=== PATIENT | female | born 1930 | race Caucasian/White ===

== ENCOUNTER 2017-01-12 12:04 | Inpatient (IN) | payer OTHER ==
[2017-01-12] VITALS (25 sets, daily range): BP systolic 78–103; BP diastolic 34–62
[~2017-01-12] VITALS: Ht 162.6 cm; Wt 84.3 kg
[~2017-01-12 12:04] MED LIST: ALDACTONE25 MG PO; ALLOPURINOL100 MG PO; AMLODIPINE BESYL5 MG PO; ASPIR 8181 M1 PO; COMBIVENT RESPIM4 GM IH; COUMADIN5 MG PO; CREON 61 CAPSULE PO; DOCUSATE SODIU100 MG PO; ELIQUIS5 MG PO; FUROSEMIDE20 MG PO; GABAPENTIN300 MG PO; HUMALOG100 UNIT/2 SC; IMODIUM MS REL1 EACH PO; LANTUS 3 M100 UNITS1 SC; LIPITOR80 MG PO; LISINOPRIL10 MG PO; MEDROL DOSEPAK4 MG PO; NITROSTAT0.4 MG SL; NOVOLOG PE100 UNITS/ SC; OXYCODONE-ACET1 EACH PO; PANCRELIPASE 51 EACH PO; POLYETHYLENE GL17 GM PO; SOTALOL120 MG PO; ULTRAM50 MG PO; VALIUM2 MG PO; VICODIN 5-3001 EACH PO
[2017-01-12 13:18] LABS: EOSINOPHIL (%) 0.3 % (0-5); HEMATOCRIT 17.7 % (36.0-46.0); IMMATURE GRANULOCYTE (%) 0.9 % (0.0-0.7); IMMATURE GRANULOCYTE COUNT 0.1 K/uL; LYMPHOCYTE COUNT 1.1 K/uL (1.0-2.8); MCH 31.3 PG (29.0-34.0); MCHC 32.2 G/DL (30.0-36.0); MCV 97.3 FL (83-99); MONOCYTE (%) 3.1 % (3-12); MONOCYTE COUNT 0.3 K/uL (0-0.8); NEUTROPHIL (%) 85.4 % (45-76); PLATELET COUNT 129 K/uL (156-360); RBC DIS.WIDTH-CV 15.3 % (11.8-14.6); RBC DIS.WIDTH-SD 53.2 % (39-53); RED BLOOD COUNT 1.82 M/uL (3.80-5.20); WHITE BLOOD COUNT 10.6 K/uL (4.1-10.2)
[2017-01-12 13:20] LABS: CHLORIDE 110 mEq/L (99-109); POTASSIUM 5.8 mEq/L (3.7-5.4); SODIUM 140 mEq/L (136-147)
[2017-01-12 13:24] LABS: ANION GAP 9 MEQ/L (2-14)
[2017-01-12 13:25] LABS: TOTAL BILIRUBIN 0.3 mg/dL (0.0-1.0)
[2017-01-12 13:27] LABS: GFR ESTIMATE (CALCULATED) 28 mL/min/
[2017-01-12 13:28] LABS: DIRECT BILIRUBIN 0.2 mg/dL (0.0-0.3)
[2017-01-12 13:29] LABS: TROP-I INTERPRETATION NEGATIVE; TROPONIN-I 0.05 ng/mL (0.0-0.30)
[2017-01-12 13:43] LABS: GLUCOSE 215 mg/dL (70-99)
[2017-01-12 13:46] LABS: ALKALINE PHOSPHATASE 74 IU/L (3-129)
[2017-01-12 13:50] LABS: LIPASE 136 U/L (1.0-51.0)
[2017-01-12 13:53] LABS: UREA NITROGEN (BUN) 138 mg/dL (9-23)
[2017-01-12 14:32] LABS: INTER. NORMALIZED RATIO 1.9; PROTHROMBIN TIME 21.8 SEC (10.2-12.9)
[2017-01-12 14:35] LABS: PTT 29.3 SEC (25-37)
[2017-01-12 17:48] LABS: METH RESISTANT S AUREUS PCR NEGATIVE (NEGATIVE)
[2017-01-12 17:52] LABS: PROBE CHECK PASS; SPECIMEN PROCESSING CONTROL PASS
[2017-01-12 19:21] LABS: HEMATOCRIT 29.5 % (36.0-46.0); MCHC 32.9 G/DL (30.0-36.0); MCV 94.2 FL (83-99); MEAN PLAT.VOLUME 11.6 uM^3 (9.5-12.4); PLATELET COUNT 117 K/uL (156-360); RBC DIS.WIDTH-SD 54.6 % (39-53); WHITE BLOOD COUNT 13.6 K/uL (4.1-10.2)
[2017-01-12 19:22] LABS: RED BLOOD COUNT 3.13 M/uL (3.80-5.20)
[2017-01-13] VITALS (22 sets, daily range): BP systolic 68–121; BP diastolic 34–61
[2017-01-13 01:16] LABS: HEMATOCRIT 26.7 % (36.0-46.0); MCH 30.8 PG (29.0-34.0); MCHC 33.3 G/DL (30.0-36.0); MCV 92.4 FL (83-99); MEAN PLAT.VOLUME 10.8 uM^3 (9.5-12.4); PLATELET COUNT 164 K/uL (156-360); RBC DIS.WIDTH-CV 16.7 % (11.8-14.6); RBC DIS.WIDTH-SD 55.8 % (39-53); RED BLOOD COUNT 2.89 M/uL (3.80-5.20); WHITE BLOOD COUNT 10.8 K/uL (4.1-10.2)
[2017-01-13 05:31] LABS: POINT-OF-CARE METER ID UU13113748
[2017-01-13 06:38] LABS: HEMATOCRIT 24.9 % (36.0-46.0); MCH 31.6 PG (29.0-34.0); MCHC 34.1 G/DL (30.0-36.0); MCV 92.6 FL (83-99); MEAN PLAT.VOLUME 10.9 uM^3 (9.5-12.4); PLATELET COUNT 160 K/uL (156-360); RBC DIS.WIDTH-CV 16.9 % (11.8-14.6); RBC DIS.WIDTH-SD 55.8 % (39-53); RED BLOOD COUNT 2.69 M/uL (3.80-5.20); WHITE BLOOD COUNT 9.1 K/uL (4.1-10.2)
[2017-01-13 06:49] LABS: INTER. NORMALIZED RATIO 1.6; PROTHROMBIN TIME 17.5 SEC (10.2-12.9)
[2017-01-13 07:13] LABS: ANION GAP 10 MEQ/L (2-14); CHLORIDE 111 MEQ/L (99-109); GFR ESTIMATE (CALCULATED) 24 mL/min/; GLUCOSE 126 mg/dL (70-99); POTASSIUM 5.4 MEQ/L (3.7-5.4); SAMPLE HEMOLYSIS CHECK 0; SAMPLE ICTERIC CHECK 0; SAMPLE LIPEMIA CHECK 0; SODIUM 141 MEQ/L (136-147)
[2017-01-13 07:14] LABS: UREA NITROGEN (BUN) 124 mg/dL (9-23)
[2017-01-13 10:22] LABS: POINT-OF-CARE METER ID UU14174212
[2017-01-13 11:29] LABS: HEMATOCRIT 27.5 % (36.0-46.0); MCH 30.6 PG (29.0-34.0); MCHC 32.4 G/DL (30.0-36.0); MCV 94.5 FL (83-99); NRBC (%) 0.2 /100 WBC (0-0); PLATELET COUNT 180 K/uL (156-360); RBC DIS.WIDTH-CV 17.2 % (11.8-14.6); RBC DIS.WIDTH-SD 57.7 % (39-53); RED BLOOD COUNT 2.91 M/uL (3.80-5.20); WHITE BLOOD COUNT 9.8 K/uL (4.1-10.2)
[2017-01-13 13:31] LABS: POINT-OF-CARE METER ID UU13113748
[2017-01-13 18:03] LABS: POINT-OF-CARE METER ID UU13113748
[2017-01-13 19:12] LABS: HEMATOCRIT 26.3 % (36.0-46.0); MCH 32.1 PG (29.0-34.0); MCHC 33.5 G/DL (30.0-36.0); MEAN PLAT.VOLUME 11.3 uM^3 (9.5-12.4); NRBC (%) 0.3 /100 WBC (0-0); PLATELET COUNT 163 K/uL (156-360); RBC DIS.WIDTH-SD 57.2 % (39-53); RED BLOOD COUNT 2.74 M/uL (3.80-5.20); WHITE BLOOD COUNT 7.9 K/uL (4.1-10.2)
[2017-01-13 23:47] LABS: POINT-OF-CARE METER ID UU14174217
[2017-01-14] VITALS (15 sets, daily range): BP systolic 89–120; BP diastolic 39–71
[2017-01-14 00:39] LABS: HEMATOCRIT 28.2 % (36.0-46.0); MCH 30.9 PG (29.0-34.0); MCHC 32.6 G/DL (30.0-36.0); MCV 94.6 FL (83-99); MEAN PLAT.VOLUME 11.1 uM^3 (9.5-12.4); NRBC (%) 0.4 /100 WBC (0-0); PLATELET COUNT 176 K/uL (156-360); RBC DIS.WIDTH-CV 16.5 % (11.8-14.6); RBC DIS.WIDTH-SD 55.5 % (39-53); RED BLOOD COUNT 2.98 M/uL (3.80-5.20); WHITE BLOOD COUNT 7.7 K/uL (4.1-10.2)
[2017-01-14 05:16] LABS: POINT-OF-CARE METER ID UU13113748
[2017-01-14 05:45] LABS: EOSINOPHIL (%) 1.2 % (0-5); EOSINOPHIL COUNT 0.1 K/uL (0-0.3); HEMATOCRIT 26.9 % (36.0-46.0); IMMATURE GRANULOCYTE (%) 0.8 % (0.0-0.7); IMMATURE GRANULOCYTE COUNT 0.1 K/uL; INSTRUMENT ABS NEUTROPHIL CT 5.7 K/uL; LYMPHOCYTE COUNT 1.3 K/uL (1.0-2.8); MCH 31.8 PG (29.0-34.0); MCHC 33.1 G/DL (30.0-36.0); MCV 96.1 FL (83-99); MEAN PLAT.VOLUME 11.4 uM^3 (9.5-12.4); MONOCYTE (%) 7.4 % (3-12); MONOCYTE COUNT 0.6 K/uL (0-0.8); NEUTROPHIL (%) 73.2 % (45-76); NEUTROPHIL COUNT 5.7 K/uL (1.8-6.4); NRBC (%) 0.3 /100 WBC (0-0); PLATELET COUNT 156 K/uL (156-360); RBC DIS.WIDTH-CV 16.7 % (11.8-14.6); RBC DIS.WIDTH-SD 56.8 % (39-53); WHITE BLOOD COUNT 7.8 K/uL (4.1-10.2)
[2017-01-14 07:07] LABS: ANION GAP 8 MEQ/L (2-14); CHLORIDE 111 MEQ/L (99-109); GFR ESTIMATE (CALCULATED) 24 mL/min/; GLUCOSE 113 mg/dL (70-99); POTASSIUM 5.6 MEQ/L (3.7-5.4); SAMPLE HEMOLYSIS CHECK 0; SAMPLE ICTERIC CHECK 0; SAMPLE LIPEMIA CHECK 0; SODIUM 140 MEQ/L (136-147); UREA NITROGEN (BUN) 104 mg/dL (9-23)
[2017-01-14 12:18] LABS: POINT-OF-CARE METER ID UU14208751
[2017-01-14 12:47] LABS: HEMATOCRIT 26.7 % (36.0-46.0); MCH 31.2 PG (29.0-34.0); MCHC 32.6 G/DL (30.0-36.0); MCV 95.7 FL (83-99); MEAN PLAT.VOLUME 10.9 uM^3 (9.5-12.4); PLATELET COUNT 162 K/uL (156-360); RBC DIS.WIDTH-CV 16.3 % (11.8-14.6); RBC DIS.WIDTH-SD 55.3 % (39-53); RED BLOOD COUNT 2.79 M/uL (3.80-5.20); WHITE BLOOD COUNT 7.3 K/uL (4.1-10.2)
[2017-01-14 17:40] LABS: POINT-OF-CARE METER ID UU14208751
[2017-01-14 19:52] LABS: HEMATOCRIT 26.8 % (36.0-46.0); MCH 31.3 PG (29.0-34.0); MCHC 32.5 G/DL (30.0-36.0); MCV 96.4 FL (83-99); PLATELET COUNT 172 K/uL (156-360); RBC DIS.WIDTH-CV 16.2 % (11.8-14.6); RBC DIS.WIDTH-SD 54.7 % (39-53); RED BLOOD COUNT 2.78 M/uL (3.80-5.20)
[2017-01-14 22:12] LABS: POINT-OF-CARE METER ID UU14208751
[2017-01-15] VITALS (7 sets, daily range): BP systolic 98–124; BP diastolic 38–63
[2017-01-15 01:01] LABS: HEMATOCRIT 27.2 % (36.0-46.0); MCH 30.8 PG (29.0-34.0); MCHC 32.4 G/DL (30.0-36.0); MCV 95.1 FL (83-99); NRBC (%) 0.3 /100 WBC (0-0); PLATELET COUNT 159 K/uL (156-360); RBC DIS.WIDTH-CV 16.3 % (11.8-14.6); RBC DIS.WIDTH-SD 53.1 % (39-53); RED BLOOD COUNT 2.86 M/uL (3.80-5.20); WHITE BLOOD COUNT 7.7 K/uL (4.1-10.2)
[2017-01-15 08:17] LABS: POINT-OF-CARE METER ID UU13113698
[2017-01-15 08:46] LABS: EOSINOPHIL (%) 1.2 % (0-5); EOSINOPHIL COUNT 0.1 K/uL (0-0.3); HEMATOCRIT 27.4 % (36.0-46.0); IMMATURE GRANULOCYTE (%) 0.8 % (0.0-0.7); IMMATURE GRANULOCYTE COUNT 0.1 K/uL; INSTRUMENT ABS NEUTROPHIL CT 5.7 K/uL; LYMPHOCYTE COUNT 0.9 K/uL (1.0-2.8); MCH 31.2 PG (29.0-34.0); MCHC 32.5 G/DL (30.0-36.0); MCV 96.1 FL (83-99); MEAN PLAT.VOLUME 10.9 uM^3 (9.5-12.4); MONOCYTE (%) 9.2 % (3-12); MONOCYTE COUNT 0.7 K/uL (0-0.8); NEUTROPHIL (%) 76.2 % (45-76); NEUTROPHIL COUNT 5.7 K/uL (1.8-6.4); PLATELET COUNT 174 K/uL (156-360); RBC DIS.WIDTH-CV 16.3 % (11.8-14.6); RBC DIS.WIDTH-SD 53.8 % (39-53); RED BLOOD COUNT 2.85 M/uL (3.80-5.20); WHITE BLOOD COUNT 7.4 K/uL (4.1-10.2)
[2017-01-15 09:05] LABS: ANION GAP 7 MEQ/L (2-14); CHLORIDE 113 MEQ/L (99-109); POTASSIUM 5.2 MEQ/L (3.7-5.4); SAMPLE HEMOLYSIS CHECK 0; SAMPLE ICTERIC CHECK 0; SAMPLE LIPEMIA CHECK 0; SODIUM 139 MEQ/L (136-147); TOTAL BILIRUBIN 0.5 MG/DL (0.0-1.0)
[2017-01-15 09:16] LABS: ALKALINE PHOSPHATASE 81 IU/L (3-129); GFR ESTIMATE (CALCULATED) 35 mL/min/; GLUCOSE 143 mg/dL (70-99); UREA NITROGEN (BUN) 82 mg/dL (9-23)
[2017-01-15 10:58] LABS: POINT-OF-CARE METER ID UU13113698
[2017-01-15 16:00] LABS: POINT-OF-CARE METER ID UU13113698
[2017-01-16 04:30] VITALS: BP 107/57
[2017-01-16 06:23] LABS: EOSINOPHIL (%) 1.5 % (0-5); EOSINOPHIL COUNT 0.1 K/uL (0-0.3); HEMATOCRIT 35.7 % (36.0-46.0); IMMATURE GRANULOCYTE (%) 0.8 % (0.0-0.7); IMMATURE GRANULOCYTE COUNT 0.1 K/uL; INSTRUMENT ABS NEUTROPHIL CT 4.6 K/uL; LYMPHOCYTE COUNT 0.9 K/uL (1.0-2.8); MCH 31.9 PG (29.0-34.0); MCHC 33.3 G/DL (30.0-36.0); MCV 95.7 FL (83-99); MEAN PLAT.VOLUME 11.4 uM^3 (9.5-12.4); MONOCYTE COUNT 0.6 K/uL (0-0.8); NEUTROPHIL (%) 74.4 % (45-76); NEUTROPHIL COUNT 4.6 K/uL (1.8-6.4); NRBC (%) 0.5 /100 WBC (0-0); PLATELET COUNT 124 K/uL (156-360); RBC DIS.WIDTH-CV 17.2 % (11.8-14.6); RBC DIS.WIDTH-SD 53.6 % (39-53); WHITE BLOOD COUNT 6.1 K/uL (4.1-10.2)
[2017-01-16 06:24] LABS: RED BLOOD COUNT 3.73 M/uL (3.80-5.20)
[2017-01-16 06:41] LABS: ALKALINE PHOSPHATASE 81 IU/L (3-129); ANION GAP 7 MEQ/L (2-14); CHLORIDE 113 MEQ/L (99-109); GFR ESTIMATE (CALCULATED) 35 mL/min/; GLUCOSE 147 mg/dL (70-99); POTASSIUM 5.3 MEQ/L (3.7-5.4); SAMPLE HEMOLYSIS CHECK 0; SAMPLE ICTERIC CHECK 0; SAMPLE LIPEMIA CHECK 0; SODIUM 141 MEQ/L (136-147); TOTAL BILIRUBIN 0.5 MG/DL (0.0-1.0); UREA NITROGEN (BUN) 64 mg/dL (9-23)
[2017-01-16 07:32] LABS: POINT-OF-CARE METER ID UU13113803
[2017-01-16 07:43] VITALS: BP 90/51
[2017-01-16 11:20] LABS: POINT-OF-CARE METER ID UU13113803
[2017-01-16 11:41] VITALS: BP 108/57
[2017-01-16] MEDS ORDERED: PANTOPRAZOLE SO40 MG PO (11:57)
[2017-01-16] MEDS ORDERED: ZOFRAN4 MG PO (15:33)
[2017-01-16 16:29] LABS: POINT-OF-CARE METER ID UU13113803
== END 2017-01-16 20:24 | disposition home or self-care (01) | DRG 378 ==
LOC: EME 12:04 → 4WEST 14:30 → EDOF 14:30 → 4EAST 14:30 → ENRESERV 15:11 → 4WEST 16:19 → ENRESERV 01-15 05:33 → 4EAST 01-15 06:06
PROVIDERS: Emergency Medicine; Hospitalist; Internal Medicine Critical Care Medicine; Internal Medicine Gastroenterology; Student in an Organized Health Care Education/Training Program
PROC: 0DJ08ZZ Inspection of Upper Intestinal Tract, Via Natural or Artificial Opening Endoscopic (ICD-10-PCS; principal; 2017-01-12)
PROC: 30233N1 Transfusion of Nonautologous Red Blood Cells into Peripheral Vein, Percutaneous Approach (ICD-10-PCS; principal; 2017-01-12)
DX: K92.1 Melena (principal); N17.9 Acute kidney failure, unspecified; I48.0 Paroxysmal atrial fibrillation; I50.9 Heart failure, unspecified; E11.22 Type 2 diabetes mellitus with diabetic chronic kidney disease; K86.89 Other specified diseases of pancreas; I13.0 Hypertensive heart and chronic kidney disease with heart failure and stage 1 through stage 4 chronic kidney disease, or unspecified chronic kidney disease; I49.5 Sick sinus syndrome; I35.0 Nonrheumatic aortic (valve) stenosis; E66.9 Obesity, unspecified; K44.9 Diaphragmatic hernia without obstruction or gangrene; H26.9 Unspecified cataract; K21.0 Gastro-esophageal reflux disease with esophagitis; D64.9 Anemia, unspecified; N18.3 Chronic kidney disease, stage 3 (moderate); R11.2 Nausea with vomiting, unspecified; M47.9 Spondylosis, unspecified; R01.1 Cardiac murmur, unspecified; I25.10 Atherosclerotic heart disease of native coronary artery without angina pectoris; E78.5 Hyperlipidemia, unspecified; M10.9 Gout, unspecified; Q27.33 Arteriovenous malformation of digestive system vessel; Z86.73 Personal history of transient ischemic attack (TIA), and cerebral infarction without residual deficits; Z95.1 Presence of aortocoronary bypass graft; Z79.01 Long term (current) use of anticoagulants; Z95.0 Presence of cardiac pacemaker; Z68.32 Body mass index [BMI] 32.0-32.9, adult; Z88.8 Allergy status to other drugs, medicaments and biological substances
CPT/HCPCS: 71010; 76770; 80048; 80053; 80076; 81003; 82948; 83605; 83690; 83880; 84484; 85025; 85027; 85610; 85730; 86900; 86901; 86920; 87641; 93005; 94799; 99202; 99281; 99285; C9113; J1815; J2405; J7030; J7050; P9016; P9017; P9035

== ENCOUNTER 2017-02-27 12:30 | Day surgery (SDC) | payer OTHER ==
[~2017-02-27 12:30] MED LIST changes: +PANTOPRAZOLE SO40 MG PO; +ZOFRAN4 MG PO
[2017-02-27 13:05] LABS: POINT-OF-CARE METER ID UU13113696
[2017-02-27] MEDS ORDERED: LASIX20 MG PO (14:55)
[2017-02-27] MEDS ORDERED: COUMADIN2 MG PO (14:56)
[2017-02-27] MEDS ORDERED: LISINOPRIL2.5 MG PO (14:56)
== END 2017-02-27 15:37 | disposition home or self-care (01) ==
LOC: CATH 12:30
PROVIDERS: Internal Medicine Cardiovascular Disease
DX: Z45.010 Encounter for checking and testing of cardiac pacemaker pulse generator [battery] (principal); I48.91 Unspecified atrial fibrillation; I44.2 Atrioventricular block, complete; I25.10 Atherosclerotic heart disease of native coronary artery without angina pectoris; Z95.1 Presence of aortocoronary bypass graft; I12.9 Hypertensive chronic kidney disease with stage 1 through stage 4 chronic kidney disease, or unspecified chronic kidney disease; E11.22 Type 2 diabetes mellitus with diabetic chronic kidney disease; N18.9 Chronic kidney disease, unspecified; Z79.4 Long term (current) use of insulin; E78.5 Hyperlipidemia, unspecified
CPT/HCPCS: 82948; C1785; J0690; J1200; J2250; J3010; S0020

== ENCOUNTER 2017-03-01 19:08 | Inpatient (IN) | payer OTHER ==
[~2017-03-01] VITALS: Ht 160 cm; Wt 86.0 kg
[~2017-03-01 19:08] MED LIST changes: +COUMADIN2 MG PO; +LASIX20 MG PO; +LISINOPRIL2.5 MG PO
[2017-03-01 19:52] LABS: INTER. NORMALIZED RATIO 1.4; PROTHROMBIN TIME 15.7 SEC (10.2-12.9)
[2017-03-01 19:54] LABS: HEMATOCRIT 30.7 % (36.0-46.0); MCH 27.5 PG (29.0-34.0); MCHC 30.9 G/DL (30.0-36.0); PLATELET COUNT 200 K/uL (156-360); RBC DIS.WIDTH-SD 55.4 % (39-53); RED BLOOD COUNT 3.45 M/uL (3.80-5.20); WHITE BLOOD COUNT 6.5 K/uL (4.1-10.2)
[2017-03-01 19:55] LABS: PTT 27.8 SEC (25-37)
[2017-03-01 19:58] LABS: CHLORIDE 106 mEq/L (99-109); POTASSIUM 4.4 mEq/L (3.7-5.4); SODIUM 144 mEq/L (136-147)
[2017-03-01 19:59] LABS: GLUCOSE 84 mg/dL (70-99)
[2017-03-01 20:01] LABS: ANION GAP 15 MEQ/L (2-14)
[2017-03-01 20:03] LABS: GFR ESTIMATE (CALCULATED) 32 mL/min/
[2017-03-01 20:04] LABS: UREA NITROGEN (BUN) 29 mg/dL (9-23)
[2017-03-01 20:08] LABS: TROP-I INTERPRETATION NEGATIVE; TROPONIN-I 0.04 ng/mL (0.0-0.30)
[2017-03-01] MEDS ORDERED: PRESERVISION T1 EACH PO (23:49)
[2017-03-01] MEDS ORDERED: CEPHALEXIN500 MG PO (23:49)
[2017-03-01] MEDS ORDERED: PROTONIX40 MG PO (23:49)
[2017-03-02 00:39] VITALS: BP 141/61
[2017-03-02 04:00] VITALS: BP 143/65
[2017-03-02 06:19] LABS: INTER. NORMALIZED RATIO 1.4; PROTHROMBIN TIME 16.1 SEC (10.2-12.9)
[2017-03-02 08:12] VITALS: BP 134/64
[2017-03-02 08:42] LABS: POINT-OF-CARE METER ID UU14162513
[2017-03-02 09:04] LABS: HEMATOCRIT 29.3 % (36.0-46.0); MCH 28.2 PG (29.0-34.0); MCHC 31.4 G/DL (30.0-36.0); MCV 89.9 FL (83-99); MEAN PLAT.VOLUME 11.3 uM^3 (9.5-12.4); PLATELET COUNT 183 K/uL (156-360); RBC DIS.WIDTH-CV 17.2 % (11.8-14.6); RBC DIS.WIDTH-SD 55.8 % (39-53); RED BLOOD COUNT 3.26 M/uL (3.80-5.20); WHITE BLOOD COUNT 5.6 K/uL (4.1-10.2)
[2017-03-02 09:18] LABS: ANION GAP 11 MEQ/L (2-14); CHLORIDE 105 MEQ/L (99-109); GFR ESTIMATE (CALCULATED) 30 mL/min/; POTASSIUM 4.5 MEQ/L (3.7-5.4); SAMPLE HEMOLYSIS CHECK 0; SAMPLE ICTERIC CHECK 0; SAMPLE LIPEMIA CHECK 0; SODIUM 142 MEQ/L (136-147); UREA NITROGEN (BUN) 32 mg/dL (9-23)
[2017-03-02 09:20] LABS: GLUCOSE 109 mg/dL (70-99)
[2017-03-02 12:00] LABS: POINT-OF-CARE METER ID UU14162513
[2017-03-02 16:03] VITALS: BP 139/67
[2017-03-02 16:37] LABS: POINT-OF-CARE METER ID UU14162513
[2017-03-02 19:30] VITALS: BP 143/64
[2017-03-02 22:01] LABS: POINT-OF-CARE METER ID UU14162513
[2017-03-02 23:43] VITALS: BP 135/68
[2017-03-03 04:15] VITALS: BP 137/72
[2017-03-03 05:45] LABS: INTER. NORMALIZED RATIO 1.5; PROTHROMBIN TIME 16.7 SEC (10.2-12.9)
[2017-03-03 07:11] VITALS: BP 117/63
[2017-03-03 08:28] LABS: HEMATOCRIT 29.8 % (36.0-46.0); MCH 27.8 PG (29.0-34.0); MCHC 31.5 G/DL (30.0-36.0); MCV 88.2 FL (83-99); MEAN PLAT.VOLUME 12.2 uM^3 (9.5-12.4); PLATELET COUNT 174 K/uL (156-360); RBC DIS.WIDTH-CV 17.4 % (11.8-14.6); RED BLOOD COUNT 3.38 M/uL (3.80-5.20); WHITE BLOOD COUNT 4.9 K/uL (4.1-10.2)
[2017-03-03 08:33] LABS: ANION GAP 10 MEQ/L (2-14); CHLORIDE 104 MEQ/L (99-109); POTASSIUM 4.2 MEQ/L (3.7-5.4); SAMPLE HEMOLYSIS CHECK 0; SAMPLE ICTERIC CHECK 0; SAMPLE LIPEMIA CHECK 0; SODIUM 142 MEQ/L (136-147)
[2017-03-03 08:38] LABS: GFR ESTIMATE (CALCULATED) 35 mL/min/; GLUCOSE 89 mg/dL (70-99); UREA NITROGEN (BUN) 31 mg/dL (9-23)
[2017-03-03] MEDS ORDERED: AZITHROMYCIN500 M1 PO (11:28)
[2017-03-03] MEDS ORDERED: FUROSEMIDE40 MG PO (11:28)
[2017-03-03] MEDS ORDERED: BENZONATATE100 MG PO (11:29)
[2017-03-03 11:31] VITALS: BP 109/53
[2017-03-03] MEDS ORDERED: COMBIVENT RESPIM4 GM IH (11:32)
[2017-03-03 12:48] LABS: POINT-OF-CARE METER ID UU14162513
== END 2017-03-03 15:37 | disposition home health service (06) | DRG 292 ==
LOC: EME 19:08 → EDOF 22:41 → ENRESERV 22:45 → 5WEST 03-02 00:02 → CANRESERV 03-02 11:47 → ENRESERV 03-02 11:47 → 5WEST 03-03 15:37
PROVIDERS: Emergency Medicine; Internal Medicine; Nurse Practitioner Adult Health
DX: I13.0 Hypertensive heart and chronic kidney disease with heart failure and stage 1 through stage 4 chronic kidney disease, or unspecified chronic kidney disease (principal); N17.9 Acute kidney failure, unspecified; I50.30 Unspecified diastolic (congestive) heart failure; Z95.810 Presence of automatic (implantable) cardiac defibrillator; I48.0 Paroxysmal atrial fibrillation; I25.10 Atherosclerotic heart disease of native coronary artery without angina pectoris; N18.3 Chronic kidney disease, stage 3 (moderate); E66.9 Obesity, unspecified; K21.9 Gastro-esophageal reflux disease without esophagitis; Z68.34 Body mass index [BMI] 34.0-34.9, adult; E78.5 Hyperlipidemia, unspecified; Z79.01 Long term (current) use of anticoagulants; Z86.73 Personal history of transient ischemic attack (TIA), and cerebral infarction without residual deficits; Z95.1 Presence of aortocoronary bypass graft; J40 Bronchitis, not specified as acute or chronic; M10.9 Gout, unspecified
CPT/HCPCS: 71010; 71250; 80048; 82948; 83605; 83880; 84484; 85027; 85610; 85730; 87040; 93005; 94010; 94640; 99202; 99281; 99285; C1785; G0378; G8978 GP CI; G8979 GP CH; G8980 GP CI; J0690; J1200; J1940; J2250; J3010; S0020

== ENCOUNTER 2017-05-08 12:27 | Inpatient (IN) | payer OTHER ==
[~2017-05-08] VITALS: Ht 160 cm; Wt 102.0 kg
[~2017-05-08 12:27] MED LIST changes: +AZITHROMYCIN500 M1 PO; +BENZONATATE100 MG PO; +CEPHALEXIN500 MG PO; +FUROSEMIDE40 MG PO; +PRESERVISION T1 EACH PO; +PROTONIX40 MG PO
[2017-05-08 13:06] LABS: HEMATOCRIT 33.6 % (36.0-46.0); MCH 24.2 PG (29.0-34.0); MCHC 30.1 G/DL (30.0-36.0); MCV 80.4 FL (83-99); MEAN PLAT.VOLUME 10.3 uM^3 (9.5-12.4); PLATELET COUNT 234 K/uL (156-360); RBC DIS.WIDTH-CV 20.6 % (11.8-14.6); RBC DIS.WIDTH-SD 57.9 % (39-53); RED BLOOD COUNT 4.18 M/uL (3.80-5.20); WHITE BLOOD COUNT 6.2 K/uL (4.1-10.2)
[2017-05-08 13:07] LABS: EOSINOPHIL (%) 1.6 % (0-5); EOSINOPHIL COUNT 0.1 K/uL (0-0.3); IMMATURE GRANULOCYTE (%) 0.6 % (0.0-0.7); INSTRUMENT ABS NEUTROPHIL CT 4.6 K/uL; LYMPHOCYTE COUNT 0.9 K/uL (1.0-2.8); MONOCYTE (%) 9.1 % (3-12); MONOCYTE COUNT 0.6 K/uL (0-0.8); NEUTROPHIL (%) 74.4 % (45-76); NEUTROPHIL COUNT 4.6 K/uL (1.8-6.4)
[2017-05-08 13:10] LABS: INTER. NORMALIZED RATIO 3.2; PROTHROMBIN TIME 35.9 SEC (10.2-12.9)
[2017-05-08 13:13] LABS: PTT 38.8 SEC (25-37)
[2017-05-08 13:14] LABS: CHLORIDE 107 mEq/L (99-109); POTASSIUM 4.7 mEq/L (3.7-5.4); SODIUM 136 mEq/L (136-147)
[2017-05-08 13:16] LABS: GLUCOSE 52 mg/dL (70-99)
[2017-05-08 13:18] LABS: ANION GAP 7 MEQ/L (2-14)
[2017-05-08 13:20] LABS: ALKALINE PHOSPHATASE 131 IU/L (3-129); GFR ESTIMATE (CALCULATED) 21 mL/min/
[2017-05-08 13:21] LABS: UREA NITROGEN (BUN) 58 mg/dL (9-23)
[2017-05-08 13:22] LABS: DIRECT BILIRUBIN 0.6 mg/dL (0.0-0.3)
[2017-05-08 13:23] LABS: LIPASE 144 U/L (1.0-51.0)
[2017-05-08 13:25] LABS: TROP-I INTERPRETATION NEGATIVE; TROPONIN-I 0.04 ng/mL (0.0-0.30)
[2017-05-08 14:49] LABS: ADD MIUA? NO; BILIRUBIN NEGATIVE; BLOOD NEGATIVE; COLOR YELLOW ((YELLOW)); GLUCOSE (STRIP) NEGATIVE; KETONES NEGATIVE; LEUKOCYTES NEGATIVE; NITRITE NEGATIVE; PROTEIN (STRIP) NEGATIVE; SPECIFIC GRAVITY 1.009 (1.000-1.030); UCUL ADDED? NO; UROBILINOGEN 0.2 MG/DL (0.2-1.0)
[2017-05-08 16:50] LABS: POINT-OF-CARE METER ID UU13113702
[2017-05-08] MEDS ORDERED: ATORVASTATIN CA40 MG PO (17:04)
[2017-05-08] MEDS ORDERED: CLOTRIMAZOLE-BE30 ML TP (17:06)
[2017-05-08] MEDS ORDERED: ENTRESTO 24 MG1 EACH PO (17:06)
[2017-05-08] MEDS ORDERED: BACITRACIN3.5 GM BOTH EYES (17:07)
[2017-05-08] MEDS ORDERED: ONDANSETRON HCL4 MG PO (17:08)
[2017-05-08] MEDS ORDERED: WARFARIN SODIUM2 MG PO (17:12)
[2017-05-08 18:06] VITALS: BP 143/97
[2017-05-08 19:25] VITALS: BP 146/72
[2017-05-09] VITALS (7 sets, daily range): BP systolic 108–140; BP diastolic 52–66
[2017-05-09 00:56] LABS: POINT-OF-CARE METER ID UU14314084
[2017-05-09 04:33] LABS: POINT-OF-CARE METER ID UU14314084
[2017-05-09 06:53] LABS: INTER. NORMALIZED RATIO 3.9; PROTHROMBIN TIME 45.2 SEC (10.2-12.9)
[2017-05-09 07:01] LABS: POINT-OF-CARE METER ID UU14162508
[2017-05-09 07:37] LABS: ANION GAP 11 MEQ/L (2-14); CHLORIDE 105 MEQ/L (99-109); GFR ESTIMATE (CALCULATED) 21 mL/min/; POTASSIUM 5.6 MEQ/L (3.7-5.4); SAMPLE HEMOLYSIS CHECK 0; SAMPLE ICTERIC CHECK 0; SAMPLE LIPEMIA CHECK 0; SODIUM 138 MEQ/L (136-147); UREA NITROGEN (BUN) 64 mg/dL (9-23)
[2017-05-09 07:43] LABS: GLUCOSE 160 mg/dL (70-99)
[2017-05-09 11:30] LABS: POINT-OF-CARE METER ID UU14162508
[2017-05-09 16:32] LABS: POINT-OF-CARE METER ID UU14314084
[2017-05-09 22:19] LABS: POINT-OF-CARE METER ID UU14314084
[2017-05-10 04:01] VITALS: BP 112/54
[2017-05-10 06:18] LABS: HEMATOCRIT 28.6 % (36.0-46.0); MCH 23.6 PG (29.0-34.0); MCHC 30.1 G/DL (30.0-36.0); MCV 78.4 FL (83-99); MEAN PLAT.VOLUME 10.4 uM^3 (9.5-12.4); PLATELET COUNT 206 K/uL (156-360); RBC DIS.WIDTH-CV 20.2 % (11.8-14.6); RBC DIS.WIDTH-SD 56.1 % (39-53); RED BLOOD COUNT 3.65 M/uL (3.80-5.20); WHITE BLOOD COUNT 5.7 K/uL (4.1-10.2)
[2017-05-10 06:31] LABS: PROTHROMBIN TIME 52.5 SEC (10.2-12.9)
[2017-05-10 06:32] LABS: ANION GAP 11 MEQ/L (2-14); CHLORIDE 105 MEQ/L (99-109); GFR ESTIMATE (CALCULATED) 19 mL/min/; GLUCOSE 186 mg/dL (70-99); POTASSIUM 4.8 MEQ/L (3.7-5.4); SAMPLE HEMOLYSIS CHECK 0; SAMPLE ICTERIC CHECK 0; SAMPLE LIPEMIA CHECK 0; SODIUM 138 MEQ/L (136-147); UREA NITROGEN (BUN) 63 mg/dL (9-23)
[2017-05-10 06:36] LABS: INTER. NORMALIZED RATIO 4.6
[2017-05-10 07:50] VITALS: BP 127/81
[2017-05-10 12:13] LABS: POINT-OF-CARE METER ID UU14314084
[2017-05-10 15:22] VITALS: BP 141/65
[2017-05-10 18:29] LABS: POINT-OF-CARE METER ID UU14208750
[2017-05-10 22:35] LABS: POINT-OF-CARE METER ID UU14314084
[2017-05-11 00:54] VITALS: BP 110/58
[2017-05-11 06:17] LABS: INTER. NORMALIZED RATIO 3.4
[2017-05-11 06:18] LABS: PROTHROMBIN TIME 39.4 SEC (10.2-12.9)
[2017-05-11 06:25] LABS: ANION GAP 9 MEQ/L (2-14); CHLORIDE 106 MEQ/L (99-109); GFR ESTIMATE (CALCULATED) 21 mL/min/; GLUCOSE 134 mg/dL (70-99); POTASSIUM 4.7 MEQ/L (3.7-5.4); SAMPLE HEMOLYSIS CHECK 0; SAMPLE ICTERIC CHECK 0; SAMPLE LIPEMIA CHECK 0; SODIUM 137 MEQ/L (136-147); UREA NITROGEN (BUN) 60 mg/dL (9-23)
[2017-05-11 06:35] LABS: POINT-OF-CARE METER ID UU14314084
[2017-05-11 07:21] VITALS: BP 106/53
[2017-05-11 10:24] LABS: HEMATOCRIT 28.2 % (36.0-46.0); MCV 78.8 FL (83-99)
[2017-05-11 10:31] LABS: HBSG INDEX 0.17
[2017-05-11 10:32] LABS: HPCA INDEX 0.17
[2017-05-11 10:33] LABS: ANTI-HEPATITIS B CORE (IGM) Nonreactive; HBC IgM INDEX 0.06
[2017-05-11 11:04] VITALS: BP 140/65
[2017-05-11 11:10] LABS: ANTI-HEPATITIS A VIRUS (IGM) EQUIVOCAL; HAV INDEX 1.03
[2017-05-11 12:22] LABS: POINT-OF-CARE METER ID UU14314084
[2017-05-11 16:15] VITALS: BP 135/60
[2017-05-11 21:50] LABS: POINT-OF-CARE METER ID UU13113702
[2017-05-11 22:05] LABS: POINT-OF-CARE METER ID UU14162508
[2017-05-12 00:47] VITALS: BP 132/64
[2017-05-12 00:51] LABS: POINT-OF-CARE METER ID UU14208750
[2017-05-12 05:54] LABS: MCH 24.1 PG (29.0-34.0); MCHC 30.7 G/DL (30.0-36.0); MCV 78.4 FL (83-99); MEAN PLAT.VOLUME 10.7 uM^3 (9.5-12.4); PLATELET COUNT 204 K/uL (156-360); RBC DIS.WIDTH-CV 20.1 % (11.8-14.6); RBC DIS.WIDTH-SD 55.8 % (39-53); RED BLOOD COUNT 3.57 M/uL (3.80-5.20); WHITE BLOOD COUNT 5.3 K/uL (4.1-10.2)
[2017-05-12 06:07] LABS: INTER. NORMALIZED RATIO 2.8; PROTHROMBIN TIME 31.6 SEC (10.2-12.9)
[2017-05-12 06:30] LABS: POINT-OF-CARE METER ID UU14162508
[2017-05-12 06:30] LABS: ALKALINE PHOSPHATASE 113 IU/L (3-129); ANION GAP 9 MEQ/L (2-14); CHLORIDE 106 MEQ/L (99-109); DIRECT BILIRUBIN 0.5 mg/dL (0.0-0.3); GFR ESTIMATE (CALCULATED) 21 mL/min/; GLUCOSE 139 mg/dL (70-99); POTASSIUM 4.5 MEQ/L (3.7-5.4); SAMPLE HEMOLYSIS CHECK 0; SAMPLE ICTERIC CHECK 0; SAMPLE LIPEMIA CHECK 0; SODIUM 138 MEQ/L (136-147); TOTAL BILIRUBIN 1.1 MG/DL (0.0-1.0); UREA NITROGEN (BUN) 59 mg/dL (9-23)
[2017-05-12 07:59] VITALS: BP 131/71
[2017-05-12 11:39] LABS: POINT-OF-CARE METER ID UU14208750
[2017-05-12] MEDS ORDERED: SOTALOL80 MG PO (12:46)
[2017-05-12] MEDS ORDERED: LASIX40 MG PO (12:46)
[2017-05-12] MEDS ORDERED: NOVOLOG PE100 UNITS/ SC ×2 (12:48)
[2017-05-12 13:01] LABS: POC NON-PRINT COM 1 ND
[2017-05-12 16:20] VITALS: BP 117/59
[2017-05-12 16:28] LABS: POINT-OF-CARE METER ID UU14314084
[2017-05-12 22:02] LABS: POINT-OF-CARE METER ID UU14162508
[2017-05-12 23:35] VITALS: BP 130/56
[2017-05-13 05:51] LABS: HEMATOCRIT 27.5 % (36.0-46.0); MCH 23.9 PG (29.0-34.0); MCHC 30.5 G/DL (30.0-36.0); MCV 78.3 FL (83-99); MEAN PLAT.VOLUME 10.9 uM^3 (9.5-12.4); PLATELET COUNT 198 K/uL (156-360); RBC DIS.WIDTH-CV 20.3 % (11.8-14.6); RED BLOOD COUNT 3.51 M/uL (3.80-5.20); WHITE BLOOD COUNT 5.4 K/uL (4.1-10.2)
[2017-05-13 06:01] LABS: INTER. NORMALIZED RATIO 2.2; PROTHROMBIN TIME 25.4 SEC (10.2-12.9)
[2017-05-13 06:13] LABS: ANION GAP 7 MEQ/L (2-14); CHLORIDE 107 MEQ/L (99-109); GFR ESTIMATE (CALCULATED) 22 mL/min/; GLUCOSE 115 mg/dL (70-99); POTASSIUM 4.5 MEQ/L (3.7-5.4); SAMPLE HEMOLYSIS CHECK 0; SAMPLE ICTERIC CHECK 0; SAMPLE LIPEMIA CHECK 0; SODIUM 137 MEQ/L (136-147); UREA NITROGEN (BUN) 55 mg/dL (9-23)
[2017-05-13 06:48] LABS: POINT-OF-CARE METER ID UU14162508
[2017-05-13 08:13] VITALS: BP 108/55
[2017-05-13 11:43] LABS: POINT-OF-CARE METER ID UU14162508
[2017-05-13] MEDS ORDERED: NOVOLOG PE100 UNITS/ SC ×3 (13:10→13:19)
[2017-05-13] MEDS ORDERED: FUROSEMIDE20 MG PO (13:11)
[2017-05-13 16:21] VITALS: BP 122/61
[2017-05-13 16:23] LABS: POINT-OF-CARE METER ID UU14162508
[2017-05-13 21:53] LABS: POINT-OF-CARE METER ID UU14162508
[2017-05-13 23:05] VITALS: BP 139/69
[2017-05-14 06:46] LABS: POINT-OF-CARE METER ID UU14208750
[2017-05-14 06:51] LABS: ANION GAP 9 MEQ/L (2-14); CHLORIDE 108 MEQ/L (99-109); GFR ESTIMATE (CALCULATED) 24 mL/min/; GLUCOSE 107 mg/dL (70-99); POTASSIUM 4.6 MEQ/L (3.7-5.4); SAMPLE HEMOLYSIS CHECK 0; SAMPLE ICTERIC CHECK 0; SAMPLE LIPEMIA CHECK 0; SODIUM 140 MEQ/L (136-147); UREA NITROGEN (BUN) 53 mg/dL (9-23)
[2017-05-14 08:21] VITALS: BP 130/63
[2017-05-14 11:55] LABS: POINT-OF-CARE METER ID UU14208750
== END 2017-05-14 14:44 | DRG 682 ==
LOC: EME → EDBD 12:27 → 2EAST 16:13 → EDOF 16:13 → 2EAST 16:13 → ENRESERV 16:14 → 2EAST 17:13
PROVIDERS: Emergency Medicine; Family Medicine; Hospitalist; Internal Medicine Nephrology
DX: N17.0 Acute kidney failure with tubular necrosis (principal); G93.41 Metabolic encephalopathy; I48.0 Paroxysmal atrial fibrillation; I49.5 Sick sinus syndrome; I50.32 Chronic diastolic (congestive) heart failure; E11.22 Type 2 diabetes mellitus with diabetic chronic kidney disease; E11.649 Type 2 diabetes mellitus with hypoglycemia without coma; E87.5 Hyperkalemia; I25.10 Atherosclerotic heart disease of native coronary artery without angina pectoris; I13.0 Hypertensive heart and chronic kidney disease with heart failure and stage 1 through stage 4 chronic kidney disease, or unspecified chronic kidney disease; N18.3 Chronic kidney disease, stage 3 (moderate); D63.1 Anemia in chronic kidney disease; H91.90 Unspecified hearing loss, unspecified ear; I35.0 Nonrheumatic aortic (valve) stenosis; Z68.39 Body mass index [BMI] 39.0-39.9, adult; R18.8 Other ascites; R79.1 Abnormal coagulation profile; E11.65 Type 2 diabetes mellitus with hyperglycemia; E66.9 Obesity, unspecified; I27.81 Cor pulmonale (chronic); B15.9 Hepatitis A without hepatic coma; B37.2 Candidiasis of skin and nail; E78.5 Hyperlipidemia, unspecified; L30.9 Dermatitis, unspecified; K21.9 Gastro-esophageal reflux disease without esophagitis; M10.9 Gout, unspecified; M85.80 Other specified disorders of bone density and structure, unspecified site; Z79.4 Long term (current) use of insulin; Z95.1 Presence of aortocoronary bypass graft; Z79.01 Long term (current) use of anticoagulants; Z95.810 Presence of automatic (implantable) cardiac defibrillator; Z86.73 Personal history of transient ischemic attack (TIA), and cerebral infarction without residual deficits; Z80.3 Family history of malignant neoplasm of breast; Z90.49 Acquired absence of other specified parts of digestive tract
CPT/HCPCS: 70450; 71010; 74176; 80048; 80069; 80074; 80076; 81003; 82272; 82948; 83605; 83690; 83880; 84145 90; 84484; 85014; 85018; 85025; 85027; 85610; 85730; 93005; 93306; 94010; 94640; 94640 76; 97530 GP; 99202; 99281; 99285; J1815; J1940

== ENCOUNTER 2017-05-30 21:27 | Inpatient (IN) | payer OTHER ==
[~2017-05-30] VITALS: Ht 160 cm; Wt 100.1 kg
[~2017-05-30 21:27] MED LIST changes: +ATORVASTATIN CA40 MG PO; +BACITRACIN3.5 GM BOTH EYES; +CLOTRIMAZOLE-BE30 ML TP; +ENTRESTO 24 MG1 EACH PO; +LASIX40 MG PO; +ONDANSETRON HCL4 MG PO; +SOTALOL80 MG PO; +WARFARIN SODIUM2 MG PO
[2017-05-30 22:07] LABS: HEMOGLOBIN 9.3 G/DL (11.9-15.5); MCH 23.7 PG (29.0-34.0); MCV 79.1 FL (83-99); NRBC (%) 0.3 /100 WBC (0-0); PLATELET COUNT 214 K/uL (156-360); RBC DIS.WIDTH-SD 62.2 % (39-53); RED BLOOD COUNT 3.92 M/uL (3.80-5.20)
[2017-05-30 22:15] LABS: CHLORIDE 108 mEq/L (99-109); POTASSIUM 5.6 mEq/L (3.7-5.4); SODIUM 139 mEq/L (136-147)
[2017-05-30 22:16] LABS: GLUCOSE 131 mg/dL (70-99)
[2017-05-30 22:20] LABS: CREATININE 2.6 mg/dL (0.6-1.3); GFR ESTIMATE (CALCULATED) 18 mL/min/
[2017-05-30 22:21] LABS: UREA NITROGEN (BUN) 50 mg/dL (9-23)
[2017-05-30 22:28] LABS: TROP-I INTERPRETATION NEGATIVE; TROPONIN-I 0.05 ng/mL (0.0-0.30)
[2017-05-30 22:34] LABS: PTT 48.3 SEC (25-37)
[2017-05-30 22:37] LABS: INTER. NORMALIZED RATIO 5.9
[2017-05-31] VITALS (7 sets, daily range): BP systolic 127–188; BP diastolic 59–84
[2017-05-31 05:13] LABS: TROP-I INTERPRETATION NEGATIVE; TROPONIN-I 0.05 ng/mL (0.0-0.30)
[2017-05-31 07:09] LABS: HEMATOCRIT 31.7 % (36.0-46.0); HEMOGLOBIN 9.2 G/DL (11.9-15.5); MCH 22.8 PG (29.0-34.0); MCV 78.7 FL (83-99); PLATELET COUNT 238 K/uL (156-360); RBC DIS.WIDTH-CV 22.3 % (11.8-14.6); RBC DIS.WIDTH-SD 62.5 % (39-53); RED BLOOD COUNT 4.03 M/uL (3.80-5.20); WHITE BLOOD COUNT 5.6 K/uL (4.1-10.2)
[2017-05-31 07:37] LABS: CHLORIDE 107 MEQ/L (99-109); CREATININE 2.4 MG/DL (0.6-1.3); GFR ESTIMATE (CALCULATED) 20 mL/min/; GLUCOSE 150 mg/dL (70-99); POTASSIUM 5.8 MEQ/L (3.7-5.4); SODIUM 140 MEQ/L (136-147); UREA NITROGEN (BUN) 48 mg/dL (9-23)
[2017-05-31] MEDS ORDERED: CREON 61 CAPSULE PO ×2 (10:52→10:53)
[2017-05-31] MEDS ORDERED: PRESERVISION T1 EACH PO (10:54)
[2017-05-31] MEDS ORDERED: WARFARIN SODIUM2 MG PO (10:55)
[2017-05-31] MEDS ORDERED: COUMADIN2.5 MG PO (10:55)
[2017-05-31] MEDS ORDERED: TRAMADOL HCL50 MG PO (10:56)
[2017-05-31] MEDS ORDERED: BENZONATATE200 MG PO (10:57)
[2017-05-31 11:12] LABS: APPEARANCE SL.HAZY ((CLEAR)); BILIRUBIN NEGATIVE; BLOOD NEGATIVE; COLOR YELLOW ((YELLOW)); GLUCOSE (STRIP) NEGATIVE; KETONES NEGATIVE; LEUKOCYTES NEGATIVE; NITRITE NEGATIVE; PROTEIN (STRIP) NEGATIVE; SPECIFIC GRAVITY 1.009 (1.000-1.030); UROBILINOGEN 0.2 MG/DL (0.2-1.0)
[2017-05-31 11:28] LABS: BACTERIA RARE /HPF; EPITHELIAL CELLS RARE /HPF; HYALINE CASTS 15-20 /LPF; MUCUS TRACE /LPF; RED BLOOD CELLS 0-5 /HPF (0-5); WHITE BLOOD CELLS 0-5 /HPF (0-5)
[2017-05-31 11:37] LABS: TROP-I INTERPRETATION NEGATIVE; TROPONIN-I 0.04 ng/mL (0.0-0.30)
[2017-05-31 13:33] LABS: ABS NEUTROPHIL COUNT 5.3; ANISOCYTOSIS 2+; BURR CELLS 2+; EOSINOPHIL ABS CT 0; HYPOCHROMASIA 2+; LYMPHOCYTES 3.6 % (15.0-45.0); MACROCYTES 2+; MONOCYTES 0.9 % (0-9.0); OVALOCYTES 3+; PLAT.SUFFICIENCY ADEQUATE; POIKILOCYTOSIS 3+; SEG.NEUTROPHILS 95.5 % (46.0-76.0)
[2017-05-31 13:55] LABS: D-DIMER LATEX POSITIVE
[2017-05-31 14:04] LABS: SCHISTOCYTES RARE
[2017-05-31 14:50] LABS: FIBRINOGEN 168 mg/dL (150-450)
[2017-06-01 03:30] VITALS: BP 103/65
[2017-06-01 06:41] LABS: ALBUMIN 2.9 G/DL (3.2-4.8); ALKALINE PHOSPHATASE 177 IU/L (3-129); ALT (GPT) 76 IU/L (3-49); AST (GOT) 124 IU/L (2-34); DIRECT BILIRUBIN 0.8 mg/dL (0.0-0.3); TOTAL BILIRUBIN 1.4 MG/DL (0.0-1.0); TOTAL PROTEIN 6.4 G/DL (6.4-8.3)
[2017-06-01 06:50] LABS: PTT 47.4 SEC (25-37)
[2017-06-01 06:51] LABS: ALBUMIN 2.9 G/DL (3.2-4.8); CHLORIDE 106 MEQ/L (99-109); CREATININE 2.8 MG/DL (0.6-1.3); GFR ESTIMATE (CALCULATED) 17 mL/min/; GLUCOSE 119 mg/dL (70-99); SODIUM 139 MEQ/L (136-147); UREA NITROGEN (BUN) 61 mg/dL (9-23)
[2017-06-01 07:12] LABS: POTASSIUM 6.3 MEQ/L (3.7-5.4)
[2017-06-01 07:31] LABS: INTER. NORMALIZED RATIO 6.4
[2017-06-01 08:15] VITALS: BP 122/58
[2017-06-01 11:39] VITALS: BP 96/37
[2017-06-01 14:32] LABS: CHLORIDE 106 MEQ/L (99-109); CREATININE 2.7 MG/DL (0.6-1.3); GFR ESTIMATE (CALCULATED) 18 mL/min/; POTASSIUM 5.7 MEQ/L (3.7-5.4); SODIUM 138 MEQ/L (136-147); UREA NITROGEN (BUN) 63 mg/dL (9-23)
[2017-06-01 14:33] LABS: GLUCOSE 184 mg/dL (70-99)
[2017-06-01 16:00] VITALS: BP 119/75
[2017-06-01 20:17] VITALS: BP 116/67
[2017-06-02 00:39] VITALS: BP 120/60
[2017-06-02 03:54] VITALS: BP 117/55
[2017-06-02 07:30] VITALS: BP 123/62
[2017-06-02 07:40] LABS: PTT 47.2 SEC (25-37)
[2017-06-02 07:50] LABS: ALBUMIN 2.7 G/DL (3.2-4.8); ALKALINE PHOSPHATASE 152 IU/L (3-129); ALT (GPT) 94 IU/L (3-49); AST (GOT) 134 IU/L (2-34); CHLORIDE 107 MEQ/L (99-109); CREATININE 2.8 MG/DL (0.6-1.3); GFR ESTIMATE (CALCULATED) 17 mL/min/; GLUCOSE 150 mg/dL (70-99); POTASSIUM 5.1 MEQ/L (3.7-5.4); SODIUM 138 MEQ/L (136-147); TOTAL BILIRUBIN 1.3 MG/DL (0.0-1.0); UREA NITROGEN (BUN) 69 mg/dL (9-23)
[2017-06-02 07:57] LABS: INTER. NORMALIZED RATIO 4.8
[2017-06-02 10:44] VITALS: BP 117/63
[2017-06-02 15:40] VITALS: BP 136/60
[2017-06-02 20:48] VITALS: BP 111/59
[2017-06-03] VITALS (7 sets, daily range): BP systolic 112–145; BP diastolic 56–79
[2017-06-03 06:35] LABS: BASOPHIL (%) 0.1 % (0-1); EOSINOPHIL (%) 0 % (0-5); HEMATOCRIT 29.4 % (36.0-46.0); HEMOGLOBIN 9.1 G/DL (11.9-15.5); IMMATURE GRANULOCYTE (%) 0.8 % (0.0-0.7); LYMPHOCYTE COUNT 0.2 K/uL (1.0-2.8); MCH 23.7 PG (29.0-34.0); MCV 76.6 FL (83-99); MONOCYTE (%) 1.6 % (3-12); MONOCYTE COUNT 0.1 K/uL (0-0.8); NEUTROPHIL (%) 95.5 % (45-76); NEUTROPHIL COUNT 8.6 K/uL (1.8-6.4); NRBC (%) 0.4 /100 WBC (0-0); PLATELET COUNT 203 K/uL (156-360); RBC DIS.WIDTH-CV 21.6 % (11.8-14.6); RBC DIS.WIDTH-SD 58.8 % (39-53); RED BLOOD COUNT 3.84 M/uL (3.80-5.20)
[2017-06-03 06:40] LABS: FIBRINOGEN 124 mg/dL (150-450); INTER. NORMALIZED RATIO 3.6
[2017-06-03 06:42] LABS: PTT 40.8 SEC (25-37)
[2017-06-03 07:18] LABS: CHLORIDE 105 MEQ/L (99-109); CREATININE 2.9 MG/DL (0.6-1.3); GFR ESTIMATE (CALCULATED) 16 mL/min/; GLUCOSE 234 mg/dL (70-99); LACTATE DEHYDROGENASE 391 IU/L (20-246); POTASSIUM 5.3 MEQ/L (3.7-5.4); SODIUM 138 MEQ/L (136-147); UREA NITROGEN (BUN) 80 mg/dL (9-23)
[2017-06-03 23:12] LABS: INTER. NORMALIZED RATIO 2.5
[2017-06-03 23:15] LABS: PTT 38.4 SEC (25-37)
[2017-06-03 23:17] LABS: HEMATOCRIT 29.7 % (36.0-46.0); HEMOGLOBIN 9.3 G/DL (11.9-15.5); MCH 23.4 PG (29.0-34.0); MCHC 31.3 G/DL (30.0-36.0); MCV 74.8 FL (83-99); NRBC (%) 0.3 /100 WBC (0-0); PLATELET COUNT 193 K/uL (156-360); RBC DIS.WIDTH-CV 21.1 % (11.8-14.6); RBC DIS.WIDTH-SD 56.3 % (39-53); RED BLOOD COUNT 3.97 M/uL (3.80-5.20); WHITE BLOOD COUNT 7.8 K/uL (4.1-10.2)
[2017-06-03 23:20] LABS: CHLORIDE 107 mEq/L (99-109); POTASSIUM 4.9 mEq/L (3.7-5.4); SODIUM 137 mEq/L (136-147)
[2017-06-03 23:21] LABS: GLUCOSE 282 mg/dL (70-99)
[2017-06-03 23:25] LABS: CREATININE 2.8 mg/dL (0.6-1.3); GFR ESTIMATE (CALCULATED) 17 mL/min/
[2017-06-03 23:26] LABS: UREA NITROGEN (BUN) 77 mg/dL (9-23)
[2017-06-04] VITALS (7 sets, daily range): BP systolic 115–137; BP diastolic 59–83
[2017-06-04 03:13] LABS: BASOPHIL (%) 0.1 % (0-1); EOSINOPHIL (%) 0 % (0-5); HEMATOCRIT 30.6 % (36.0-46.0); HEMOGLOBIN 9.5 G/DL (11.9-15.5); IMMATURE GRANULOCYTE (%) 0.8 % (0.0-0.7); LYMPHOCYTE (%) 1.9 % (15-42); LYMPHOCYTE COUNT 0.2 K/uL (1.0-2.8); MCH 23.4 PG (29.0-34.0); MCV 75.4 FL (83-99); MONOCYTE (%) 2.7 % (3-12); MONOCYTE COUNT 0.2 K/uL (0-0.8); NEUTROPHIL (%) 94.5 % (45-76); NRBC (%) 0.4 /100 WBC (0-0); PLATELET COUNT 197 K/uL (156-360); RBC DIS.WIDTH-CV 21.1 % (11.8-14.6); RBC DIS.WIDTH-SD 56.3 % (39-53); RED BLOOD COUNT 4.06 M/uL (3.80-5.20); WHITE BLOOD COUNT 8.4 K/uL (4.1-10.2)
[2017-06-04 03:23] LABS: CHLORIDE 106 mEq/L (99-109); POTASSIUM 4.9 mEq/L (3.7-5.4); SODIUM 137 mEq/L (136-147)
[2017-06-04 03:25] LABS: GLUCOSE 237 mg/dL (70-99)
[2017-06-04 03:29] LABS: CREATININE 2.6 mg/dL (0.6-1.3); GFR ESTIMATE (CALCULATED) 18 mL/min/
[2017-06-04 03:30] LABS: UREA NITROGEN (BUN) 80 mg/dL (9-23)
[2017-06-04 19:20] LABS: INTER. NORMALIZED RATIO 2.1
[2017-06-05 04:50] VITALS: BP 114/58
[2017-06-05 06:14] LABS: BASOPHIL (%) 0.2 % (0-1); EOSINOPHIL (%) 0 % (0-5); HEMATOCRIT 28.4 % (36.0-46.0); HEMOGLOBIN 8.9 G/DL (11.9-15.5); IMMATURE GRANULOCYTE (%) 0.8 % (0.0-0.7); LYMPHOCYTE (%) 1.5 % (15-42); LYMPHOCYTE COUNT 0.2 K/uL (1.0-2.8); MCH 23.4 PG (29.0-34.0); MCHC 31.3 G/DL (30.0-36.0); MCV 74.7 FL (83-99); MONOCYTE (%) 3.1 % (3-12); MONOCYTE COUNT 0.3 K/uL (0-0.8); NEUTROPHIL (%) 94.4 % (45-76); NEUTROPHIL COUNT 9.9 K/uL (1.8-6.4); NRBC (%) 0.4 /100 WBC (0-0); PLATELET COUNT 160 K/uL (156-360); RBC DIS.WIDTH-CV 21.6 % (11.8-14.6); RBC DIS.WIDTH-SD 56.7 % (39-53); WHITE BLOOD COUNT 10.5 K/uL (4.1-10.2)
[2017-06-05 06:20] LABS: INTER. NORMALIZED RATIO 1.9
[2017-06-05 06:25] LABS: CHLORIDE 105 MEQ/L (99-109); CREATININE 2.4 MG/DL (0.6-1.3); GFR ESTIMATE (CALCULATED) 20 mL/min/; GLUCOSE 192 mg/dL (70-99); POTASSIUM 5.2 MEQ/L (3.7-5.4); SODIUM 138 MEQ/L (136-147); UREA NITROGEN (BUN) 76 mg/dL (9-23)
[2017-06-05 07:50] VITALS: BP 137/90
[2017-06-05 11:56] VITALS: BP 129/69
[2017-06-05 15:45] VITALS: BP 124/60
[2017-06-05 19:59] VITALS: BP 133/66
[2017-06-05 23:41] VITALS: BP 130/69
[2017-06-06 03:24] VITALS: BP 125/71
[2017-06-06 06:59] LABS: INTER. NORMALIZED RATIO 1.7
[2017-06-06 07:39] VITALS: BP 130/70
[2017-06-06 10:47] VITALS: BP 110/76
[2017-06-06] MEDS ORDERED: FUROSEMIDE20 MG PO (14:41)
[2017-06-06] MEDS ORDERED: PREDNISONE5 MG PO (14:47)
[2017-06-06] MEDS ORDERED: DOCUSATE SODIU100 MG PO (14:47)
[2017-06-06 15:27] VITALS: BP 107/51
== END 2017-06-06 18:30 | disposition home health service (06) | DRG 682 ==
LOC: EME 21:27 → EDOF 05-31 03:48 → 2EAST 05-31 03:48 → ENRESERV 05-31 03:49 → 2EAST 05-31 05:17
PROVIDERS: Hospitalist; Internal Medicine; Internal Medicine Nephrology; Internal Medicine Pulmonary Disease; Physician Assistant Medical; Specialist
DX: N17.9 Acute kidney failure, unspecified (principal); I13.0 Hypertensive heart and chronic kidney disease with heart failure and stage 1 through stage 4 chronic kidney disease, or unspecified chronic kidney disease; I50.33 Acute on chronic diastolic (congestive) heart failure; J20.9 Acute bronchitis, unspecified; J21.9 Acute bronchiolitis, unspecified; N18.3 Chronic kidney disease, stage 3 (moderate); E11.22 Type 2 diabetes mellitus with diabetic chronic kidney disease; E11.51 Type 2 diabetes mellitus with diabetic peripheral angiopathy without gangrene; I82.722 Chronic embolism and thrombosis of deep veins of left upper extremity; I82.712 Chronic embolism and thrombosis of superficial veins of left upper extremity; E87.5 Hyperkalemia; E87.2 Acidosis; R18.8 Other ascites; I48.0 Paroxysmal atrial fibrillation; K86.89 Other specified diseases of pancreas; I27.29 Other secondary pulmonary hypertension; I08.2 Rheumatic disorders of both aortic and tricuspid valves; I27.81 Cor pulmonale (chronic); K31.811 Angiodysplasia of stomach and duodenum with bleeding; D50.0 Iron deficiency anemia secondary to blood loss (chronic); R79.1 Abnormal coagulation profile; R41.82 Altered mental status, unspecified; E78.5 Hyperlipidemia, unspecified; I25.10 Atherosclerotic heart disease of native coronary artery without angina pectoris; K21.9 Gastro-esophageal reflux disease without esophagitis; K74.60 Unspecified cirrhosis of liver; M10.9 Gout, unspecified; Z66 Do not resuscitate; E66.01 Morbid (severe) obesity due to excess calories; Z68.39 Body mass index [BMI] 39.0-39.9, adult; Z79.01 Long term (current) use of anticoagulants; Z79.4 Long term (current) use of insulin; Z86.73 Personal history of transient ischemic attack (TIA), and cerebral infarction without residual deficits; Z95.1 Presence of aortocoronary bypass graft; Z95.810 Presence of automatic (implantable) cardiac defibrillator
CPT/HCPCS: 36415; 70450; 71010; 71250; 76705; 80048; 80048 91; 80053; 80069; 80076; 81003; 82140; 82150 90; 82436; 82570; 82948; 83010 90; 83605; 83615; 83880; 83880 GA; 84100; 84133; 84156; 84300; 84484; 84550; 85007; 85025; 85025 91; 85027; 85378; 85384; 85610; 85730; 87070; 87205; 93005; 93971; 94640; 94640 76; 97530 GO; 99202; 99281; 99283; J1815; J1940; J2920; J2930; J7040; J7512